=== PATIENT | male | born 1945 | race Caucasian/White ===

== ENCOUNTER 2019-05-12 08:09 | Day surgery (SDC) | payer MEDICARE ==
[2019-05-10 13:40] LABS: BASOPHILS % (AUTO) 0.3 % (0.0-5.0); EOSINOPHILS % (AUTO) 1.3 % (0.0-8.0); LYMPHOCYTES % (AUTO) 16.5 % (21.0-51.0); MEAN CORPUSCULAR HEMOGLOBIN 28.8 pg (27.0-33.0); MEAN CORPUSCULAR VOLUME 87.5 fL (79-99); NEUTROPHILS % (AUTO) 73.5 % (40.0-77.0); PLATELET COUNT (AUTO) 161 K/uL (130-400); RED BLOOD CELL COUNT(AUTO) 5.03 MIL/uL (4.50-6.20); RED CELL DISTRIBUTION WIDTH 13.1 % (11.0-15.5); WHITE BLOOD COUNT (AUTO) 8.9 K/uL (4.8-10.8)
[2019-05-10 13:47] LABS: CREATININE 1.3 mg/dL (0.5-1.5); POTASSIUM 4.6 mmol/L (3.5-5.1)
[2019-05-10 13:54] VITALS: BP 162/92
[2019-05-10 13:54] LABS: INR 0.97 (0.85-1.15); PARTIAL THROMBOPLASTIN TIME 26.4 SEC (26.3-35.5); PROTHROMBIN TIME 10.5 SEC (9.6-11.6)
[2019-05-10 13:56] LABS: APPEARANCE,URINE Clear (CLEAR); BILIRUBIN,URINE Negative (NEGATIVE); COLOR,URINE Dark Yellow (YELLOW); GLUCOSE, URINE (UA) Negative (NEGATIVE); KETONES,URINE Trace mg/dL (NEGATIVE); LEUKOCYTE ESTERASE ,URINE Trace (NEGATIVE); NITRATE,URINE Negative (NEGATIVE); OCCULT BLOOD,URINE Negative (NEGATIVE); PROTEIN,URINE Negative (NEGATIVE)
[2019-05-10 14:03] LABS: BACTERIA,URINE Rare /HPF (None Seen); RBC,URINE 0-1 /HPF (0-1); SQUAMOUS EPITHELIAL CELL,UR Rare /HPF (0-2); WBC,URINE 0-1 /HPF (0-1)
[2019-05-12] VITALS (11 sets, daily range): BP systolic 121–146; BP diastolic 67–85
[~2019-05-12] VITALS: Ht 177.8 cm; Wt 98.7 kg
[~2019-05-12 08:09] MED LIST: ASCO100031 PO; ASPI-556 PO; ATOR10 PO; DIPH25 PO; ENAL10TA63 PO; FOLI0.8C PO; GLUC-29 PO; MELO-108 PO; OMEP20TA2 PO; SODIUM CHLORIDE 0.9% 1000ML 1,000 ML IV ONE; TAMS-1 PO; VERA120T20 PO; VITA-164 PO; VITA1CAP PO; [UNRECOGNIZED DRUG - OTHER] PO; red rice PO
[2019-05-12] MEDS ORDERED: BIVALIRUDIN 250 MG/VIAL IV ONE (09:09)
[2019-05-12] MEDS ORDERED: MIDAZOLAM HCL 1 MG/ML 2ML VIAL ONE (09:10)
[2019-05-12] MEDS ORDERED: NITROGLYCERIN 2 MG/VIAL VIAL IV ONE (09:10)
[2019-05-12] MEDS ORDERED: IOHEXOL-350 50ML VIAL IV ONE (09:10)
[2019-05-12] MEDS ORDERED: IOHEXOL 350 MG/ML 100ML INFUS..BTL IV ONE ×2 (09:10→10:28)
[2019-05-12] MEDS ORDERED: LIDOCAINE HCL 2% 20ML ONE (09:10)
[2019-05-12] MEDS ORDERED: HEPARIN SODIUM 1000UNIT/ML 10ML VIAL ONE (09:10)
[2019-05-12] MEDS ORDERED: ADENOSINE 90MG/30ML VIAL IV ONE (10:15)
[2019-05-12] MEDS ORDERED: SODIUM CHLORIDE 0.9% 1000ML 1,000 ML IV SCH (10:47)
--- NOTE | 2019-05-12 12:15 | NUR ---
DIET PT TOLERATED DIET WELL, ASSISTED IN FEEDING PT.
--- NOTE | 2019-05-12 15:30 | NUR ---
DISCHARGE PT DISCHARGED VIA WHEELCHAIR WITH , FAMILY FRIEND DRIVING THEM HOME. PT STABLE. NOT IN ANY APPARENT DISTRESS. CATH SITE TO RIGHT GROIN REMAINS SOFT, DRESSING DRY AND INTACT, NO OOZING NO HEMATOMA NOTED. DISCHARGE INSTRUCTIONS GIVEN TO AND PT, BOTH VERBALIZED UNDERSTANDING.
== END 2019-05-12 15:30 | disposition home or self-care (01) ==
LOC: DAH 08:09
PROVIDERS: ATTEND Internal Medicine Cardiovascular Disease
DX: R94.31 Abnormal electrocardiogram [ECG] [EKG] (principal); I25.10 Atherosclerotic heart disease of native coronary artery without angina pectoris; I10 Essential (primary) hypertension; Z96.652 Presence of left artificial knee joint; Z98.890 Other specified postprocedural states; Z79.899 Other long term (current) drug therapy; Z88.0 Allergy status to penicillin
CPT/HCPCS: 36415; 71045; 80048; 81001; 85025; 85610; 85730; 93005; 93458; 93571; A4215; A4216; A4221; A4222; A4223 ×3; A4606; A4663; C1760; C1769; C1887; C1894; J0153; J1644 ×2; J2250; J3490 ×2; J7030; Q9965 ×2; Q9967 ×2; 99156; 99157; J0583